=== PATIENT | female | born 1960 | race Caucasian/White ===

== ENCOUNTER 2017-07-04 19:35 | Inpatient (IN) | payer MEDICARE, OTHER ==
[~2017-07-04] VITALS: Ht 162.6 cm; Wt 60.1 kg
[2017-07-04 19:36] VITALS: BP 131/87; PULSE 99; RESP 16; TEMP 97.9; O2SAT 98
[2017-07-04] MEDS ORDERED: BUPR150XL PO (22:23)
[2017-07-04] MEDS ORDERED: ATOR10TA15 PO (22:23)
[2017-07-04] MEDS ORDERED: ARIP1TAB5 PO (22:24)
[2017-07-04] MEDS ORDERED: LAMO25 PO (22:24)
[2017-07-04] MEDS ORDERED: MELO7.5T4 PO (22:30)
--- NOTE | 2017-07-04 23:00 | PD ---
HPI . Neck pain Chief Complaint: Medical Clearance Time Seen by Provider: 22:50 Travel History International Travel<30 days: No Contact w/Intl Traveler<30days: No Traveled to known affect area: No History of Present Illness HPI This patient presents with admission orders from Dr. Bob dated today. The patient states that she left Dr. Bob's office and went home to take care of a few things before being admitted. She states that she was instructed to come to the emergency department to be admitted. She states that she is here for spinal decompression. She states that she has a history of COPD and is subsequently being admitted by her to her in to be evaluated treated by medicine and pulmonology. PFSH Past Medical History Bipolar Disorder: Yes Depression: Yes High Cholesterol: Yes COPD: Yes Tetanus Vaccination: Unknown Influenza Vaccination: No Menopausal: Yes : 1 Para: 1 Past Surgical History Section: Yes Hysterectomy: Yes Other Surgery: Yes (RIGHT LOWER LOBECTOMY) Social History Alcohol Use: Yes (SOCIAL) Tobacco Use: Yes Substance Use: No Allergies-Medications (Allergen,Severity, Reaction): Coded Allergies: morphine (Verified Adverse Reaction, Unknown, Headache, 07/04/17) Reported Meds & Prescriptions Reported Meds & Active Scripts Active Reported Meloxicam 7.5 Mg Tab 7.5 Mg PO DAILY Abilify (Aripiprazole) 10 Mg Tab 30 Mg PO HS Lamictal (Lamotrigine) 25 Mg Tab 100 Mg PO DAILY Wellbutrin Xl 24 HR (Bupropion HCl) 150 Mg Tab 100 Mg PO DAILY Atorvastatin (Atorvastatin Calcium) 10 Mg Tab 20 Mg PO HS Review of Systems Except as stated in HPI: all other systems reviewed are Neg HENT: Positive: Neck Pain Respiratory: Positive: Cough, No: Shortness of Breath Physical Exam Narrative GENERAL: Awake and alert. She looks pretty comfortable. SKIN: Warm and dry and intact. HEAD: Normocephalic/atraumatic. EYES: Extraocular movements are intact. CARDIOVASCULAR: Heart sounds are normal. RESPIRATORY: She has an occasional cough but good air movement and her lungs are clear. MUSCULOSKELETAL: Atraumatic. NEUROLOGICAL: Nonfocal. PSYCHIATRIC: Appropriate mood and affect. Data Data Last Documented VS Vital Signs Date Time Temp Pulse Resp B/P (MAP) Pulse Ox O2 Delivery O2 Flow Rate FiO2 07/04/17 19:36 97.9 99 16 131/87 (102) 98 Room Air Orders Orders Admit Order (Ed Use Only) (07/04/17 22:51) Vital Signs (Adult) Q4H (07/04/17 22:51) Diet Heart Healthy (07/05/17 Breakfast) Activity Oob With Assistance (07/04/17 22:51) Notify Dr: Other (07/04/17 22:51) MDM Medical Decision Making Medical Screen Exam Complete: Yes Emergency Medical Condition: Yes Differential Diagnosis Differential diagnosis of neck pain includes but is not limited to muscle spasm/ pain, arthritis, spinal stenosis, HNP, epidural abscess Narrative Course This patient presents with admission orders. She is to be admitted to one of the orthopedic surgeons with consults to and pulmonology. I have entered the ready to move orders and we will send the written admission orders from the orthopedist to the floor with the patient. Diagnosis Primary Impression: Cervical stenosis of spinal canal Admitting Information Admitting Physician Requests: Admit Condition: Stable Bisi Hendrickson MD Jul 04, 2017 23:00
[2017-07-05] VITALS (7 sets, daily range): BP systolic 88–105; BP diastolic 54–69; PULSE 82–93; RESP 16–18; TEMP 96.7–98.8; O2SAT 92–99
[2017-07-05] MEDS ORDERED: diphenhydrAMINE HCL 25 MG CAP PO PRN (00:15)
[2017-07-05] MEDS ORDERED: ACETAMINOPHEN 325 MG TAB PO PRN (00:15)
[2017-07-05] MEDS ORDERED: MORPHINE SULFATE 4 MG/ML INJ IV PRN (00:15)
[2017-07-05] MEDS ORDERED: ONDANSETRON HCL 4 MG/2 ML VIAL IV PUSH PRN (00:15)
[2017-07-05 02:22] LABS: AUTOMATED NEUTROPHIL # 2.8 TH/MM3 (1.8-7.7); BASOPHIL % 0.8 % (0.0-2.0); EOSINOPHIL # 0.1 TH/MM3 (0-0.4); EOSINOPHIL % 2.1 % (0.0-4.0); HEMATOCRIT 38.7 % (35.0-46.0); HEMO FLAGS DIFF FINAL; LYMPH % 41.3 % (9.0-44.0); LYMPHOCYTE # 2.6 TH/MM3 (1.0-4.8); MEAN CELL VOLUME 96.1 FL (80.0-100.0); MEAN CORPUSCULAR HGB CONC 33.3 % (32.0-36.0); MONO % 11.2 % (0.0-8.0); NEUT % 44.6 % (16.0-70.0); PLATELET COUNT 237 TH/MM3 (150-450); RED BLOOD COUNT 4.03 MIL/MM3 (4.00-5.30); RED CELL DISTRIBUTION WIDTH 13.6 % (11.6-17.2); WHITE BLOOD COUNT 6.3 TH/MM3 (4.0-11.0)
[2017-07-05 02:31] LABS: APTT (PATIENT) 24.9 SEC (24.3-30.1); INTERNATIONAL NORMALIZED RATIO 0.9 RATIO; PROTHROMBIN TIME - PATIENT 10.1 SEC (9.8-11.6)
[2017-07-05 02:39] LABS: BICARBONATE 28.1 MEQ/L (21.0-32.0); POTASSIUM 3.8 MEQ/L (3.5-5.1)
[2017-07-05] MEDS: ACETAMINOPHEN/HYDROcodone 325 MG/5 MG TAB PO PRN ×3 (04:58→19:04)
--- NOTE | 2017-07-05 07:29 | RADRPT ---
EXAM DATE/TIME: 07/05/2017 06:15 [facility] COMPARISON: No previous studies available for comparison. INDICATIONS : Evaluate for pneumonia, pneumothorax or communicable disease MEDICAL HISTORY : Chronic obstructive pulmonary disease. asthma, cervical stenosis SURGICAL HISTORY : right lower lobectomy ENCOUNTER: Initial ACUITY: 1 day PAIN SCORE: 0/10 LOCATION: Bilateral chest FINDINGS: Portable AP view of the chest demonstrate a normal-sized cardiac silhouette. There is slight blunting of the right costophrenic sulcus with linear opacities at the right lung base. No pneumothorax or co nsolidation is visualized. Bones and soft tissues demonstrate no acute finding. There is an old heale d right mid clavicle fracture. CONCLUSION: Slight blunting of the right costophrenic angle could represent pleural scar or trace pleural fluid. There is associated scar or atelectasis at the right base. Dionicio Méndez MD on July 05, 2017 at 7:26 Board Certified Radiologist. This report was verified electronically.
--- NOTE | 2017-07-05 09:40 | HHI.HP ---
HPI Service [facility] Primary Care Physician No Primary Care Physician Admission Diagnosis progressive myelopathy cervical stenosis Diagnoses: Chief Complaint: Difficulty with ambulation with progressive myelopathy Travel History International Travel<30 Days: No Contact w/Intl Traveler <30 Da: No Traveled to Known Affected Are: No History of Present Illness Patient is a 57yo female who presented to my office with low back pain and difficulty ambulating. She states her balance dysfunction has been worsening over the last several months and over the last 2 weeks has made it almost impossible to walk without a walker and not fall. She was floridly myelopathic in office with progression since first evaluation and therefore was admitted to the hospital for IV steroids, medical clearance, and surgery tomorrow. Review of Systems Constitutional: DENIES: Fever Endocrine: DENIES: Polydipsia Eyes: DENIES: Blurred vision Ears, nose, mouth, throat: DENIES: Running Nose Respiratory: DENIES: Cough Cardiovascular: DENIES: Chest pain Gastrointestinal: DENIES: Abdominal pain Genitourinary: DENIES: Urinary frequency Musculoskeletal: COMPLAINS OF: Joint pain, Muscle aches, Back pain, Neck pain Integumentary: DENIES: Rash Hematologic/lymphatic: DENIES: Bruising Immunologic/allergic: DENIES: Eczema Neurologic: COMPLAINS OF: Abnormal gait, Paresthesias, Poor Balance Psychiatric: DENIES: Anxiety Past Family Social History Past Medical History Bipolar, hyperlipidemia, COPD Past Surgical History s/p R lower lobectomy and 2 prior ACDFs Reported Medications atorvastatin, lamotrogine, abilify Allergies: Coded Allergies: morphine (Verified Adverse Reaction, Unknown, Headache, 07/04/17) Active Ordered Medications Current Medications Medications (Trade) Dose Ordered Sig/Megan Route Start Time Stop Time Status Last Admin ([place] 5-325 Mg) 1 tab Q6H PRN PO 07/05/17 00:15 07/05/17 04:58 (Morphine Inj) 2 mg Q4H PRN IV 07/05/17 00:15 (Tylenol) 650 mg Q6H PRN PO 07/05/17 00:15 (Zofran Inj) 4 mg Q8H PRN IV PUSH 07/05/17 00:15 (Benadryl) 25 mg Q8H PRN PO 07/05/17 00:15 (Abilify) 30 mg HS PO 07/05/17 21:00 UNV (Lipitor) 20 mg HS PO 07/05/17 21:00 UNV (Wellbutrin Xl 24 Hr) 100 mg DAILY PO 07/06/17 09:00 UNV (LaMICtal) 100 mg DAILY PO 07/05/17 09:30 UNV Reported Meds & Active Scripts Active Reported Meloxicam 7.5 Mg Tab 7.5 Mg PO DAILY Abilify (Aripiprazole) 10 Mg Tab 30 Mg PO HS Lamictal (Lamotrigine) 25 Mg Tab 100 Mg PO DAILY Wellbutrin Xl 24 HR (Bupropion HCl) 150 Mg Tab 100 Mg PO DAILY Atorvastatin (Atorvastatin Calcium) 10 Mg Tab 20 Mg PO HS Family History denies cardiac issues Social History +tobacco and EtOH Physical Exam Vital Signs Vital Signs Date Time Temp Pulse Resp B/P (MAP) Pulse Ox O2 Delivery O2 Flow Rate FiO2 07/05/17 08:20 97.2 93 18 102/63 (76) 98 07/05/17 04:51 96.7 82 17 105/61 (76) 94 07/05/17 00:30 97.3 82 16 103/69 (80) 96 07/04/17 23:34 07/04/17 19:36 97.9 99 16 131/87 (102) 98 Room Air Physical Exam Awake, alert, NAD Normocephalic Pupils equal Moist mucous membranes No JVD Normal affect Non-labored respirations Regular rate Soft, non-tender abdomen Neck with decreased ROM due to pain. Mild TTP about posterior paraspinals. 5/5 strength throughout BUE although reports paresthesias intermittently in upper extremities. +Hoffmans. Unable to perform rapid alternating movements. BLE: full active ROM and strength throughout. +Clonus. Sensation reported to be decreased throughout entire lower extremities. Laboratory Laboratory Tests Test 07/05/17 01:50 White Blood Count 6.3 Red Blood Count 4.03 Hemoglobin 12.9 Hematocrit 38.7 Mean Corpuscular Volume 96.1 Mean Corpuscular Hemoglobin 32.0 Mean Corpuscular Hemoglobin Concent 33.3 Red Cell Distribution Width 13.6 Platelet Count 237 Mean Platelet Volume 7.6 Neutrophils (%) (Auto) 44.6 Lymphocytes (%) (Auto) 41.3 Monocytes (%) (Auto) 11.2 Eosinophils (%) (Auto) 2.1 Basophils (%) (Auto) 0.8 Neutrophils # (Auto) 2.8 Lymphocytes # (Auto) 2.6 Monocytes # (Auto) 0.7 Eosinophils # (Auto) 0.1 Basophils # (Auto) 0.0 CBC Comment DIFF FINAL Differential Comment Prothrombin Time 10.1 Prothromb Time International Ratio 0.9 Activated Partial Thromboplast Time 24.9 Blood Urea Nitrogen 14 Creatinine 0.68 Random Glucose 91 Calcium Level 8.8 Sodium Level 139 Potassium Level 3.8 Chloride Level 107 Carbon Dioxide Level 28.1 Anion Gap 4 Estimat Glomerular Filtration Rate 90 Result Diagram: 07/05/1714907/05/17149 Imaging MRI C and T spine from outside facilities demonstrate severe cervical stenosis C7-T1 with myelomalacia and spondylolisthesis C7 on T1. Prior fusion C4-C6 well healed. C3-[address] without clear evidence of fusion. Right foraminal stenosis C6-C7 Caprini VTE Risk Assessment Caprini VTE Risk Assessment: No/Low Risk (score <= 1) (Planned surgery tomorrow and patient is able to ambulate as tolerated today) VTE Pharm Contraindication: Spinal surgery Caprini Risk Assessment Model Point Value = 1 Point Value = 2 Point Value = 3 Point Value = 5 Age 41-60 Minor surgery BMI > 25 kg/m2 Swollen legs Varicose veins or History of unexplained or recurrent spontaneous Oral contraceptives or hormone replacement Sepsis (< 1 month) Serious lung disease, including pneumonia (< 1 month) Abnormal pulmonary function Acute myocardial infarction Congestive heart failure (< 1 month) History of inflammatory bowel disease Medical patient at bed rest Age 61-74 Arthroscopic surgery Major open surgery (> 45 min) Laparoscopic surgery (> 45 min) Malignancy Confined to bed (> 72 hours) Immobilizing plaster cast Central venous access Age >= 75 History of VTE Family history of VTE Factor V Leiden Prothrombin [id number] Lupus anticoagulant Anticardiolipin antibodies Elevated serum homocysteine Heparin-induced thrombocytopenia Other congenital or acquired thrombophilia Stroke (< 1 month) Elective arthroplasty Hip, pelvis, or leg fracture Acute spinal cord injury (< 1 month) Prophylaxis Regimen Total Risk Factor Score Risk Level Prophylaxis Regimen 0-1 Low Early ambulation 2 Moderate Order ONE of the following: *Sequential Compression Device (SCD) *Heparin 5000 units SQ BID 3-4 Higher Order ONE of the following medications: *Heparin 5000 units SQ TID *Enoxaparin/Lovenox 40 mg SQ daily (WT < 150 kg, CrCl > 30 mL/min) *Enoxaparin/Lovenox 30 mg SQ daily (WT < 150 kg, CrCl > 10-29 mL/min) *Enoxaparin/Lovenox 30 mg SQ BID (WT < 150 kg, CrCl > 30 mL/min) AND/OR *Sequential Compression Device (SCD) 5 or more Highest Order ONE of the following medications: *Heparin 5000 units SQ TID (Preferred with Epidurals) *Enoxaparin/Lovenox 40 mg SQ daily (WT < 150 kg, CrCl > 30 mL/min) *Enoxaparin/Lovenox 30 mg SQ daily (WT < 150 kg, CrCl > 10-29 mL/min) *Enoxaparin/Lovenox 30 mg SQ BID (WT < 150 kg, CrCl > 30 mL/min) AND *Sequential Compression Device (SCD) Assessment & Plan Assessment and Plan 57yo F with cervical stenosis with progressive myelopathy, admitted for IV steroids prior to operative decompression tomorrow 1. IV steroids for next 24hrs to help with cord edema 2. Medicine and pulmonology consults for clearance and optimization for surgery 3. Fall precautions given significant balance dysfunction 4. NPO after midnight for surgery tomorrow. 5. Plan for C6-T1 decompression with posterior cervical instrumented fusion C3- T2 Alejandra Bob MD Jul 05, 2017 09:40
--- NOTE | 2017-07-05 10:09 | PD.CONS ---
[facility] Request[facility] By Dr. Bob Reason for Consult Preop clearance, medical management Primary Care Physician No Primary Care Physician Diagnoses: History of Present Illness Written by Tyrell Min, acting as scribe for Dr. Maddox on 07/05/17 at 10: 09. Patient is a 57-year-old female with primary medical history of COPD, bipolar disorder, cervical stenosis who came into the hospital as advised by Dr. Bob for spinal decompression. Patient states that she came in because she has been having neck pain, described as sharp pain, associated with with numbness and tingling from her arms all the way down to her legs, states burning sensation is also present. Patient reports unsteady gait, left hand and able to hold on things. Patient verified her previous medical and surgical history. Last surgery was 3 years ago for the C3 to C5 surgical intervention. When asked whether she has chest pain or shortness of breath with exertion, patient states that she has chest tightness not really pain chest pressure when she climbs stairs or when she does exert efforts ongoing for about 5 years now, she gets short of breath and she attributed this to her COPD. Reports dry cough for about a day not expectorating anything. Denies snoring. Currently she denies chest pain, palpitations, SOB/dyspnea .Denies pain and discomfort. Denies headaches, dizziness. Denies fevers, chills, n/v/d. Review of Systems Except as stated in HPI: all other systems reviewed are Neg Past Family Social History Allergies: Coded Allergies: morphine (Verified Adverse Reaction, Unknown, Headache, 07/04/17) Past Medical History COPD Bipolar disorder Depression Hyperlipidemia Spinal stenosis Past Surgical History Right lobectomy secondary to mass, benign, about 8 years ago Hysterectomy next and Spinal surgery x2 Reported Medications Reported Meds & Active Scripts Active Reported Abilify (Aripiprazole) 10 Mg Tab 30 Mg PO HS Lamictal (Lamotrigine) 25 Mg Tab 100 Mg PO DAILY Wellbutrin Xl 24 HR (Bupropion HCl) 150 Mg Tab 100 Mg PO DAILY Atorvastatin (Atorvastatin Calcium) 10 Mg Tab 20 Mg PO HS Active Ordered Medications Current Medications Medications (Trade) Dose Ordered Sig/Megan Route Start Time Stop Time Status Last Admin ([place] 5-325 Mg) 1 tab Q6H PRN PO 07/05/17 00:15 07/05/17 04:58 (Morphine Inj) 2 mg Q4H PRN IV 07/05/17 00:15 (Tylenol) 650 mg Q6H PRN PO 07/05/17 00:15 (Zofran Inj) 4 mg Q8H PRN IV PUSH 07/05/17 00:15 (Benadryl) 25 mg Q8H PRN PO 07/05/17 00:15 (Abilify) 30 mg HS PO 07/05/17 21:00 UNV (Lipitor) 20 mg HS PO 07/05/17 21:00 UNV (Wellbutrin Xl 24 Hr) 100 mg DAILY PO 07/06/17 09:00 UNV (LaMICtal) 100 mg DAILY PO 07/05/17 09:30 UNV (Decadron Inj) 4 mg Q8HR IV PUSH 07/05/17 10:00 UNV Family History Mother had a stroke now wheelchair bound. Social History Rare alcohol use 44 years smoking history half a pack per day, current smoker Marijuana use occasionally last use about a month ago Physical Exam Vital Signs Vital Signs Date Time Temp Pulse Resp B/P (MAP) Pulse Ox O2 Delivery O2 Flow Rate FiO2 07/05/17 08:20 97.2 93 18 102/63 (76) 98 07/05/17 04:51 96.7 82 17 105/61 (76) 94 07/05/17 00:30 97.3 82 16 103/69 (80) 96 07/04/17 23:34 07/04/17 19:36 97.9 99 16 131/87 (102) 98 Room Air Physical Exam GENERAL: This is a well-nourished, well-developed patient, in no apparent distress. SKIN: No rashes, ecchymoses or lesions. Warm and dry. HEAD: Atraumatic. Normocephalic. No temporal or scalp tenderness. EYES: Pupils equal round and reactive. Extraocular motions intact. No scleral icterus. No injection or drainage. ENT: Nose without bleeding. Throat without erythema. Uvula midline. Airway patent. NECK: Trachea midline. No JVD or lymphadenopathy. Supple, nontender, no meningeal signs. CARDIOVASCULAR: Regular rate and rhythm without murmurs, gallops, or rubs. RESPIRATORY: Clear to auscultation. Breath sounds equal bilaterally. No wheezes , rales, or rhonchi. GASTROINTESTINAL: Abdomen soft, non-tender, nondistended. No guarding. I'll sounds active 4. MUSCULOSKELETAL: Extremities without clubbing, cyanosis, or edema. NEUROLOGICAL: Awake and alert. Cranial nerves II through XII intact. Motor and sensory grossly within normal limits. Normal speech. Laboratory Laboratory Tests Test 07/05/17 01:50 White Blood Count 6.3 Red Blood Count 4.03 Hemoglobin 12.9 Hematocrit 38.7 Mean Corpuscular Volume 96.1 Mean Corpuscular Hemoglobin 32.0 Mean Corpuscular Hemoglobin Concent 33.3 Red Cell Distribution Width 13.6 Platelet Count 237 Mean Platelet Volume 7.6 Neutrophils (%) (Auto) 44.6 Lymphocytes (%) (Auto) 41.3 Monocytes (%) (Auto) 11.2 Eosinophils (%) (Auto) 2.1 Basophils (%) (Auto) 0.8 Neutrophils # (Auto) 2.8 Lymphocytes # (Auto) 2.6 Monocytes # (Auto) 0.7 Eosinophils # (Auto) 0.1 Basophils # (Auto) 0.0 CBC Comment DIFF FINAL Differential Comment Prothrombin Time 10.1 Prothromb Time International Ratio 0.9 Activated Partial Thromboplast Time 24.9 Blood Urea Nitrogen 14 Creatinine 0.68 Random Glucose 91 Calcium Level 8.8 Sodium Level 139 Potassium Level 3.8 Chloride Level 107 Carbon Dioxide Level 28.1 Anion Gap 4 Estimat Glomerular Filtration Rate 90 Result Diagram: 07/05/17 0150 07/05/17 0150 Imaging Last Impressions Chest X-Ray 07/05/17 0000 Signed Impressions: Service Date/Time: June 06:15 - CONCLUSION: Slight blunting of the right costophrenic angle could represent pleural scar or trace pleural fluid. There is associated scar or atelectasis at the right base. Dionicio Méndez MD Assessment and Plan Problem List: (1) Cervical stenosis of spinal canal ICD Code: M48.02 - Spinal stenosis, cervical region Status: Acute Assessment and Plan Patient is a 57-year-old female with primary medical history of COPD, bipolar disorder, cervical stenosis who came into the hospital as advised by Dr. Bob for spinal decompression. Spinal decompression - Plan for surgical intervention tomorrow by Dr. Bob - Decadron IV 4 mg every 8 hours per surgery - Pain management by morphine IV, [place] - Patient may need to cardiology for clearance since she was complaining of tightness and shortness of breath with exertion which is not usual for COPD patients and signifying angina. States that she had prior stress tests unable to know the results nor the date of the last stress test done. We will order EKG, myocardial perfusion study. COPD, not in exacerbation - Complains of occasional cough, dry, unable to expectorate - DuoNeb's Bipolar disorder, depression - And tinea with home medications Abilify, Lamictal, Wellbutrin HLD - Continue with atorvastatin DVT prop SCDs Code Status Full code Discussed Condition With Patient, nursing This note was transcribed by scriberic [Tyrell Min]. I, Dr. Jesse Maddox personally performed the history, physical exam, and medical decision making; and confirmed the accuracy of the information in the transcribed note. Authenticated by Dr. Jesse Maddox on 07/05/17 at 18:47. Tyrell Pennington Jul 05, 2017 10:09 Jesse Maddox MD Jul 05, 2017 10:10
--- NOTE | 2017-07-05 12:13 | EKG ---
Date Performed: 07/05/2017 Time Performed: 01:01:16 PTAGE: 57 years EKG: Sinus rhythm Normal ECG NO PREVIOUS TRACING DOCTOR: Franci Sepulveda Interpretating Date/Time 07/05/2017 12:11:40
[2017-07-05] MEDS: DEXAMETHASONE SOD PHOS 4 MG/ML VIAL IV PUSH SCH ×3 (12:23→23:05)
[2017-07-05] MEDS: lamoTRIgine 100 MG TAB PO SCH (12:24)
--- NOTE | 2017-07-05 12:32 | MB ---
cc: DANIEL MAK DATE OF CONSULTATION 07/05/2017 INDICATION Chest pain. HISTORY OF PRESENT ILLNESS This is a 57-year-old female. She presented initially with low back pain, difficulty with ambulation and imbalance over the course of the past several months. She was admitted from an outpatient office due to florid myelopathy for IV steroids. They are anticipating possible surgery upcoming and needed surgical clearance. She generates more than 4 METS but does describe some chest tightness with heavy exertion. Denies any prior history of known heart disease, stress test or heart catheterization. PAST MEDICAL HISTORY 1. Bipolar. 2. Hyperlipidemia. 3. COPD. MEDICATIONS 1. Atorvastatin. 2. Lamotrigine. 3. Abilify. ALLERGIES MORPHINE. REVIEW OF SYSTEMS A 12-point reviews was performed, negative unless otherwise noted in the History of Present Illness. FAMILY HISTORY Denies any family history of early cardiac disease or sudden cardiac . SOCIAL HISTORY Reports tobacco use but denies any significant alcohol use. PHYSICAL EXAMINATION VITAL SIGNS: Temperature 97, pulse 93, blood pressure 102/63 mmHg. GENERAL: Alert and oriented x3, in no acute distress. HEENT: Exam shows pupils reactive to light and accommodation, extraocular movements intact. NECK: No elevation in jugular venous distension. No thyromegaly or lymphadenopathy. No carotid bruits. LUNGS: Clear to auscultation bilaterally. CARDIOVASCULAR EXAM: Regular rate and rhythm without murmurs, rubs or gallops. ABDOMINAL EXAM: Nontender, nondistended. Good bowel sounds. No hepatosplenomegaly. EXTREMITIES: No clubbing, cyanosis or edema. Good peripheral pulses. NEUROLOGIC: Cranial nerves intact. Motor and sensory grossly intact. LABORATORY DATA His labs show sodium of 139, potassium 3.8, BUN is 14, creatinine 0.8. INR is 0.9. Hemoglobin is 12.9, platelet count 237. ASSESSMENT 1. Chest pain. 2. Back pain. PLAN Intermediate risk surgery. The patient generates 4 METS but does experience chest pain. Now given active symptoms, she is not going to tolerate any sort of treadmill study. We will need to proceed with a Lexiscan for cardiac clearance. If that is otherwise unremarkable, then she will be cleared from a cardiac perspective for surgery. MD SANDIE Rooney/BEVERLY /12:01 PM /12:06 PM TAMMY
--- NOTE | 2017-07-05 17:21 | MB ---
cc: SHALONDA LIZ DATE OF CONSULTATION 07/05/17 REASON FOR CONSULTATION Patient with COPD admitted with spinal stenosis and lower extremity weakness planned for surgery in the a.m., underway for pulmonary clearance. HISTORY OF PRESENT ILLNESS the patient is 57 years of age, presents to the hospital with low back pain, difficulty ambulating over several months. The patient apparently was transferred to the hospital with severe myelopathy requiring IV steroid therapy and possible surgery. She does have plans for surgery in the a.m. underway. The patient does have shortness of breath with exertion. She is a smoker and currently does smoke. Denies history of fever or chills, does have an occasional cough small amount of whitish sputum. Denies history of hemoptysis, TB or industrial exposure. MEDICATIONS At home 1. Lamotrogine. 2. Atorvastatin. 3. Abilify 4. Inhaler to use for shortness of breath as needed PAST MEDICAL HISTORY 1. Bipolar disorder 2. COPD 3. Hyperlipidemia 4. Spinal stenosis as mentioned above with lower extremity weakness. FAMILY HISTORY Noncontributory. ALLERGIES MORPHINE REVIEW OF SYSTEMS A 12-point review of systems as per HPI and past history otherwise negative. PHYSICAL EXAMINATION GENERAL: The patient is alert. VITAL SIGNS: Temperature 98, pulse 80, respirations 18, blood pressure 100/60, oxygen saturation 99% on room air. HEENT: Exam unremarkable. Eyes without icterus. NECK: Without adenopathy or thyroid enlargement. CHEST: No dullness to percussion, clear to auscultation. CARDIAC: PMI not appreciated. S1-S2 audible. No murmur or rub. ABDOMEN: Lax, audible bowel sounds. EXTREMITIES: No clubbing, cyanosis or edema. Lower extremity weakness as mentioned above. SKIN: Normal. No lymphadenopathy LABORATORY DATA White count 6.3, hemoglobin 12.9, sodium 139, potassium 3.8, BUN 14, creatinine 0.6. IMAGING STUDIES Chest x-ray done today with slight blunting of the right costophrenic angle, pleural scar or trace effusion. No mass lesion or infiltrate identified. IMPRESSION 1. Smoking history, question COPD 2. Spinal stenosis, lower extremity weakness. 3. Tobacco abuse. PLAN The patient encouraged to stop smoking. The patient is in no acute distress at present. We will check baseline spirometric exam as well as arterial blood gas. Clinically, patient seems stable. Does not seem that she will have any problem with surgical intervention at this time, especially this is an emergency with lower extremity weakness and would require intervention to relieve nerve compression. However, timing of the surgery obviously will be left to orthopedic or neurosurgery. It would be appropriate to initiate bronchodilator therapy via nebulizations before and after surgery. Obviously, will need pulmonary toilet and attention postoperatively to mobilize secretion, especially with her muscle weakness. I do thank you for asking me to partake in Mrs. Gomes's care. Shalonda Liz MD WWW/ /4:50 PM /5:03 PM
[2017-07-05 19:43] LABS: BLOOD GAS BASE EXCESS -0.7 mmol/L (-2-2); BLOOD GAS HCO3 24 mmol/L (22-26); BLOOD GAS O2 HGB SATURATION 92 % (90-100); BLOOD GAS PCO2 43 mmHg (38-42); BLOOD GAS PO2 74 mmHg (61-120); BLOOD GAS TOTAL HGB 13.2 G/DL (12.0-16.0); CRITICAL VALUE NO; DRAW SITE RT RADIAL; NUMBER OF ARTERIAL PUNCTURES 2; OXYGEN DEVICE RA; STAT NO; TEMP CORR TO 98.6; ULNAR PULSE PRESENT
[2017-07-05] MEDS: ARIPiprazole 10 MG TAB PO SCH (23:00)
[2017-07-05] MEDS: ATORVASTATIN 20 MG TAB PO SCH (23:04)
[2017-07-06 00:55] VITALS: BP 102/58; PULSE 90; RESP 18; TEMP 97.6; O2SAT 92
[2017-07-06] MEDS: ACETAMINOPHEN/HYDROcodone 325 MG/5 MG TAB PO PRN ×3 (01:10→15:02)
[2017-07-06 04:10] VITALS: BP 102/62; PULSE 90; RESP 17; TEMP 97.1; O2SAT 92
[2017-07-06] MEDS: DEXAMETHASONE SOD PHOS 4 MG/ML VIAL IV PUSH SCH ×3 (06:11→22:00)
[2017-07-06] MEDS ORDERED: THROMBIN (TOPICAL) 5,000 UNIT VIAL ONE (07:32)
[2017-07-06] MEDS ORDERED: GENTAMICIN SULFATE 80 MG/2 ML VIAL ONE (07:32)
[2017-07-06] MEDS ORDERED: GELFOAM SIZE 100 ONE (07:32)
[2017-07-06] MEDS ORDERED: BACITRACIN TOP OINT 15 GM TUBE ONE (07:32)
[2017-07-06] MEDS ORDERED: BUPIVACAINE/EPINEPHRINE 0.25% 50 ML VIAL ONE (07:32)
[2017-07-06 07:47] VITALS: BP 116/66; PULSE 86; RESP 19; TEMP 97.4; O2SAT 93
--- NOTE | 2017-07-06 08:10 | PD.CARD.PN ---
Subjective Subjective Remarks no CV complaints (Jeremías Ennis) Objective Medications Current Medications Medications (Trade) Dose Ordered Sig/Megan Route Start Time Stop Time Status Last Admin ([place] 5-325 Mg) 1 tab Q6H PRN PO 07/05/17 00:15 07/06/17 01:10 (Morphine Inj) 2 mg Q4H PRN IV 07/05/17 00:15 (Tylenol) 650 mg Q6H PRN PO 07/05/17 00:15 (Zofran Inj) 4 mg Q8H PRN IV PUSH 07/05/17 00:15 (Benadryl) 25 mg Q8H PRN PO 07/05/17 00:15 (Abilify) 30 mg HS PO 07/05/17 21:00 07/05/17 23:00 (Lipitor) 20 mg HS PO 07/05/17 21:00 07/05/17 23:04 (LaMICtal) 100 mg DAILY PO 07/05/17 09:30 07/05/17 12:24 (Decadron Inj) 4 mg Q8HR IV PUSH 07/05/17 10:00 07/06/17 06:11 (Wellbutrin Sr) 150 mg DAILY PO 07/06/17 09:00 Vital Signs / I&O Vital Signs Date Time Temp Pulse Resp B/P (MAP) Pulse Ox O2 Delivery O2 Flow Rate FiO2 07/06/17 07:47 97.4 86 19 116/66 (83) 93 07/06/17 04:10 97.1 90 17 102/62 (75) 92 07/06/17 00:55 97.6 90 18 102/58 (73) 92 07/05/17 20:50 98.2 93 18 94/56 (69) 92 07/05/17 20:47 92 07/05/17 16:00 98.8 85 18 88/54 (65) 92 07/05/17 12:13 97.9 89 18 91/56 (68) 99 07/05/17 08:20 97.2 93 18 102/63 (76) 98 I/O 07/05/17 07/05/17 07/05/17 07/06/17 07/06/17 07/06/17 07:00 15:00 23:00 07:00 15:00 23:00 Intake Total 0 ml 480 ml 240 ml Balance 0 ml 480 ml 240 ml Intake Oral 0 ml 480 ml 240 ml # Voids 2 2 2 # Bowel Movements 0 0 0 Physical Exam GENERAL: Well-nourished, well-developed patient in no apparent distress. NECK: No JVD. No carotid bruit. CARDIOVASCULAR: Regular rate and rhythm. S1/S2 no murmur, rub, or gallop. RESPIRATORY: No accessory muscle use. Clear to auscultation. Breath sounds equal bilaterally. GASTROINTESTINAL: Abdomen soft, non-tender, nondistended. MUSCULOSKELETAL: Extremities without clubbing, cyanosis, or edema. Laboratory Laboratory Tests Test 07/05/17 19:36 Blood Gas Puncture Site RT RADIAL Blood Gas Patient Temperature 98.6 Blood Gas HCO3 24 mmol/L Blood Gas Base Excess -0.7 mmol/L Blood Gas Oxygen Saturation 92 % Arterial Blood pH 7.37 Arterial Blood Partial Pressure CO2 43 mmHg Arterial Blood Partial Pressure O2 74 mmHg Arterial Blood Oxygen Content 17.0 Vol % Arterial Blood Carboxyhemoglobin 2.0 % Arterial Blood Methemoglobin 1.0 % Blood Gas Hemoglobin 13.2 G/DL Oxygen Delivery Device RA (Jeremías Ennis) Assessment and Plan Problem List: (1) Chest pain ICD Codes: R07.9 - Chest pain, unspecified Assessment and Plan Lexiscan SPECT this morning further recommendations will depend on that outcome (Jeremías Ennis) Assessment and Plan clear from cardio perspective for surgery will sign off call with further questions (Anshul Blue MD) Jeremías Ennis Jul 06, 2017 08:10 Anshul Blue MD Jul 06, 2017 14:09
[2017-07-06] MEDS ORDERED: buPROPion HCL 150 MG EXTENDED RELEASE TAB PO SCH (09:00)
--- NOTE | 2017-07-06 09:31 | HHI.PR ---
Subjective Remarks alert no sob at rest Objective Vital Signs Date Time Temp Pulse Resp B/P (MAP) Pulse Ox O2 Delivery O2 Flow Rate FiO2 07/06/17 07:47 97.4 86 19 116/66 (83) 93 07/06/17 04:10 97.1 90 17 102/62 (75) 92 07/06/17 00:55 97.6 90 18 102/58 (73) 92 07/05/17 20:50 98.2 93 18 94/56 (69) 92 07/05/17 20:47 92 07/05/17 16:00 98.8 85 18 88/54 (65) 92 07/05/17 12:13 97.9 89 18 91/56 (68) 99 I/O 07/05/17 07/05/17 07/05/17 07/06/17 07/06/17 07/06/17 07:00 15:00 23:00 07:00 15:00 23:00 Intake Total 0 ml 480 ml 240 ml Balance 0 ml 480 ml 240 ml Intake Oral 0 ml 480 ml 240 ml # Voids 2 2 2 # Bowel Movements 0 0 0 Result Diagram: 07/05/17 01507/05/17149 Objective Remarks GENERAL: SKIN: Warm and dry. HEAD: Atraumatic. Normocephalic. EYES: Pupils equal and round. No scleral icterus. No injection or drainage. ENT: No nasal bleeding or discharge. Mucous membranes pink and moist. NECK: Trachea midline. No JVD. CARDIOVASCULAR: Regular rate and rhythm. RESPIRATORY: No accessory muscle use. Clear to auscultation. Breath sounds equal bilaterally. GASTROINTESTINAL: Abdomen soft, non-tender, nondistended. Hepatic and splenic margins not palpable. MUSCULOSKELETAL: Extremities without clubbing, cyanosis, or edema. No obvious deformities. NEUROLOGICAL: Awake and alert. No obvious cranial nerve deficits. Motor grossly within normal limits. Five out of 5 muscle strength in the arms and legs. Normal speech. PSYCHIATRIC: Appropriate mood and affect; insight and judgment normal. Assessment and Plan Assessment and Plan copd spinal stenosis plan check pft bronchodilator therapy Shalonda Liz MD Jul 06, 2017 09:31
[2017-07-06] MEDS: lamoTRIgine 100 MG TAB PO SCH (09:32)
[2017-07-06] MEDS: buPROPion HCL 150 MG SUSTAINED RELEASE TAB PO SCH (09:32)
--- NOTE | 2017-07-06 10:14 | PD.ORT.PN ---
Subjective Subjective Remarks Patient doing well this morning. No new complaints. Pain controlled. Awaiting stress test this morning for cardiac clearance. Objective Vitals Vital Signs Date Time Temp Pulse Resp B/P (MAP) Pulse Ox O2 Delivery O2 Flow Rate FiO2 07/06/17 07:47 97.4 86 19 116/66 (83) 93 07/06/17 04:10 97.1 90 17 102/62 (75) 92 07/06/17 00:55 97.6 90 18 102/58 (73) 92 07/05/17 20:50 98.2 93 18 94/56 (69) 92 07/05/17 20:47 92 07/05/17 16:00 98.8 85 18 88/54 (65) 92 07/05/17 12:13 97.9 89 18 91/56 (68) 99 I/O 07/05/17 07/05/17 07/05/17 07/06/17 07/06/17 07/06/17 07:00 15:00 23:00 07:00 15:00 23:00 Intake Total 0 ml 480 ml 240 ml Balance 0 ml 480 ml 240 ml Intake Oral 0 ml 480 ml 240 ml # Voids 2 2 2 # Bowel Movements 0 0 0 Result Diagram: 07/05/17 01507/05/17 015 Objective Remarks Awake, alert, NAD BUE and BLE: without tenderness and NVI distally. Hyperreflexic throughout. Assessment & Plan Assessment and Plan 57yo F with cervical stenosis with progressive myelopathy, admitted for IV steroids prior to operative decompression planned for today 1. IV steroids for next 24hrs to help with cord edema. Will finish this morning 2. Medicine and pulmonology consults for clearance and optimization for surgery. Awaiting stress test for cardiac clearance. 3. Fall precautions given significant balance dysfunction 4. NPO for surgery. If patient clears today, will attempt to do later tonight pending OR availability 5. Plan for C6-T1 decompression with posterior cervical instrumented fusion C3- T2 Alejandra Bob MD Jul 06, 2017 10:14
[2017-07-06] MEDS ORDERED: REGADENOSON INJ 0.4 MG/5 ML SYR ONE (10:58)
--- NOTE | 2017-07-06 11:37 | RADRPT ---
EXAM DATE/TIME: 07/06/2017 09:52 [facility] COMPARISON: No previous studies available for comparison. INDICATIONS : Risk stratification for surgery. DOSE: 25.4 mCi Tc99m Myoview at stress. 8.6 mCi Tc99m Myoview at rest. 0.4 mg Lexiscan STRESS SYMPTOMS: Shortness of breath, chest pressure. EJECTION FRACTION: 68% MEDICAL HISTORY : Chronic obstructive pulmonary disease. SURGICAL HISTORY : Hysterectomy. Spinal surgery and right lower lobectomy. ENCOUNTER: Initial ACUITY: 1 day PAIN SCALE: 0/10 LOCATION: chest TECHNIQUE: The patient underwent pharmacologic stress with infusion of prescribed dose. Continuous ECG tracing was monitored during stress. Gated SPECT imaging was performed after stress and conventional SPECT i maging was performed at rest. The examination was performed on a SPECT/CT scanner, both attenuation and non-corrected datasets were reviewed. FINDINGS: DISTRIBUTION: The maximum perfused segment at stress is in the inferior wall. PERFUSION STUDY: The pattern of perfusion at stress is within normal limits. GATED STUDY: There is intact wall motion and thickening without hypokinetic or dyskinetic segments. CONCLUSION: No reversible defects observed to suggest acute ischemia. RISK CATEGORY: Low Asim Spangler Jr., MD on July 06, 2017 at 11:33 Board Certified Radiologist. This report was verified electronically.
--- NOTE | 2017-07-06 13:55 | HHI.PR ---
Subjective Remarks Patient seen today around noon. Says she is feeling all right. Denies any chest pain or shortness of breath. Objective Vital Signs Date Time Temp Pulse Resp B/P (MAP) Pulse Ox O2 Delivery O2 Flow Rate FiO2 07/06/17 07:47 97.4 86 19 116/66 (83) 93 07/06/17 04:10 97.1 90 17 102/62 (75) 92 07/06/17 00:55 97.6 90 18 102/58 (73) 92 07/05/17 20:50 98.2 93 18 94/56 (69) 92 07/05/17 20:47 92 07/05/17 16:00 98.8 85 18 88/54 (65) 92 I/O 07/05/17 07/05/17 07/05/17 07/06/17 07/06/17 07/06/17 07:00 15:00 23:00 07:00 15:00 23:00 Intake Total 0 ml 480 ml 240 ml Balance 0 ml 480 ml 240 ml Intake Oral 0 ml 480 ml 240 ml # Voids 2 2 2 # Bowel Movements 0 0 0 Result Diagram: 07/05/17 01507/05/17149 Objective Remarks GENERAL: Patient lying in bed. Appears comfortable. SKIN: Warm and dry. HEAD: Normocephalic. EYES: No scleral icterus. No injection or drainage. NECK: Supple, trachea midline. No JVD. CARDIOVASCULAR: Regular rate and rhythm without murmurs, gallops, or rubs. RESPIRATORY: Breath sounds equal bilaterally. No accessory muscle use. GASTROINTESTINAL: Abdomen soft, non-tender, nondistended. MUSCULOSKELETAL: No cyanosis, or edema. BACK: Nontender without obvious deformity. No CVA tenderness. A/P Assessment and Plan ====07/06/17 -Reviewed myocardial perfusion scan which is low risk. Appreciate cardiology assistance. Patient's cleared for surgery. Add maintenance fluids due to nothing by mouth status. Discussed with nursing. Patient is a 57-year-old female with primary medical history of COPD, bipolar disorder, cervical stenosis who came into the hospital as advised by Dr. Bob for spinal decompression. //Spinal decompression - Plan for surgical intervention tomorrow by Dr. Bob - Decadron IV 4 mg every 8 hours per surgery - Pain management by morphine IV, [place] - Patient may need to cardiology for clearance since she was complaining of tightness and shortness of breath with exertion which is not usual for COPD patients and signifying angina. States that she had prior stress tests unable to know the results nor the date of the last stress test done. We will order EKG, myocardial perfusion study. = 07/06. Myocardial perfusion scan low risk. Appreciate cardiology assistance. Patient is cleared for surgery. //COPD, not in exacerbation - Complains of occasional cough, dry, unable to expectorate - DuoNeb's as per pulmonology. Appreciate assistance. Rate ABG reviewed and acceptable. //Bipolar disorder, depression -Continue with home medications Abilify, Lamictal, Wellbutrin //HLD - Continue with atorvastatin //DVT prop SCDs Discharge Planning Pending neurosurgery Jesse Maddox MD Jul 06, 2017 13:55
[2017-07-06 14:33] VITALS: BP 102/62; PULSE 91; RESP 19; TEMP 97.3; O2SAT 98
[2017-07-06] MEDS: NS + KCL 20 MEQ INJ 1,000 ML IV SCH ×2 (14:53→23:59)
[2017-07-06] MEDS ORDERED: ceFAZolin 2 GM PREMIX 50 ML ONE (17:42)
[2017-07-06] MEDS ORDERED: VANCOMYCIN HCL 1000 MG VIAL ONE (17:42)
[2017-07-06] MEDS ORDERED: PROPOFOL 500 MG/50 ML INJ 0 ML ONE (19:02)
[2017-07-06] MEDS ORDERED: ACETAMINOPHEN 1000 MG/100 ML 100 ML IV ONE (19:02)
[2017-07-06] MEDS: ATORVASTATIN 20 MG TAB PO SCH (21:00)
[2017-07-06] MEDS: ARIPiprazole 10 MG TAB PO SCH (21:00)
[2017-07-06] MEDS ORDERED: DO NOT ADM ANY ANTICOAGULANT DRUGS PRN (22:30)
--- NOTE | 2017-07-06 22:40 | RADRPT ---
EXAM DATE/TIME: 07/06/2017 20:36 [facility] COMPARISON: No previous studies available for comparison. INDICATIONS : C6-T1 Laminectomy / C3-T2 Fusion MEDICAL HISTORY : cervical stenosis SURGICAL HISTORY : anterior cervical fusion ENCOUNTER: Initial ACUITY: 1 day PAIN SCORE: Non-responsive. LOCATION: cervical/thoracic spine FINDINGS: 4 images have been submitted. There is an anterior cervical fusion plate at the C3-C4 level. There ar e posterior stabilization rods with posterior element screws seen at the C3-T2 levels. There appear t o be stabilization devices at the C4-C5 and C5 at C6 disc levels. CONCLUSION: Good placement of the surgical hardware. Dionicio Cheng MD on July 06, 2017 at 22:37 Board Certified Radiologist. This report was verified electronically.
--- NOTE | 2017-07-06 22:40 | HHI.PR ---
cc: Alejandra Bob MD Immediate Post Op Note Procedure Date: Jul 06, 2017 Pre Op Diagnosis: Progressive cervical myeloradiculopathy Post Op Diagnosis: as above Surgeon: Alejandra Bob Advertising Project Manager(s): Esdras Romeo Procedure: 1. C6, T1 dome laminectomies, C7 laminectomy 2. C3-T2 posterior cervical instrumented fusion 3. Allograft Complications: none Estimated blood loss: 200mL Anesthesia: General Drains: Hemovac IVF Patient to: PACU Patient Condition: Good Implant/Devices: SEE IMPLANT LOG (if applicable) Date/Time of Procedure: SEE SURGICAL CARE RECORD Alejandra Bob MD Jul 06, 2017 22:40
[2017-07-06] MEDS ORDERED: Post-op Orders (for Pharmacy) MISC XX ONE (22:45)
[2017-07-06] MEDS ORDERED: NALOXONE HCL 0.4 MG/ML AMP IV PUSH PRN (22:45)
[2017-07-06] MEDS ORDERED: SODIUM CHLORIDE 0.9% FLUSH 10 ML FLUSH IV FLUSH PRN (22:45)
[2017-07-06] MEDS ORDERED: HYDROmorphone HCL PCA 6 MG/30 ML IV SCH (22:45)
[2017-07-06] MEDS ORDERED: SOD PHOSPHATE/SOD BIPHOSPHATE (ADULT) ENEMA 133ML PR PRN (22:45)
[2017-07-06] MEDS ORDERED: BISACODYL 10 MG SUPP RECTAL PRN (22:45)
[2017-07-07] VITALS (7 sets, daily range): BP systolic 94–147; BP diastolic 59–96; PULSE 74–99; RESP 16–18; TEMP 95.8–97.9; O2SAT 92–97
--- NOTE | 2017-07-07 | RADRPT ---
EXAM DATE/TIME: 07/06/2017 23:14 [facility] COMPARISON: [facility] ([facility]), July 06, 2017, 20:36. INDICATIONS : Post-op cervical fusion. MEDICAL HISTORY : Cervical stenosis SURGICAL HISTORY : Fusion, cervical. ENCOUNTER: Subsequent ACUITY: 1 day PAIN SCORE: Non-responsive. LOCATION: Cervical spine FINDINGS: There is an anterior cervical fusion plate at the C3-C4 level. There are stabilization devices at the C4-C5 and C5-C6 disc levels. There are stabilization rods and screws at the posterior elements of C3 -T2. The patient is status post laminectomy at C3-C7. The surgical hardware appears well placed. Ther e is an old right clavicle fracture. CONCLUSION: Good placement of cervical hardware. Dionicio Cheng MD on July 06, 2017 at 23:57 Board Certified Radiologist. This report was verified electronically.
[2017-07-07] MEDS ORDERED: PCA - TOTAL MG DILAUDID DELIVERED PER SHIFT OTHER SCH (06:00)
[2017-07-07] MEDS: DEXAMETHASONE SOD PHOS 4 MG/ML VIAL IV PUSH SCH (06:29)
[2017-07-07 07:23] LABS: HEMATOCRIT 34.6 % (35.0-46.0); REVIEW FLAG FINAL
[2017-07-07] MEDS: buPROPion HCL 150 MG SUSTAINED RELEASE TAB PO SCH (08:56)
[2017-07-07] MEDS: lamoTRIgine 100 MG TAB PO SCH (08:56)
[2017-07-07] MEDS: DOCUSATE SODIUM 100 MG CAP PO SCH ×2 (08:56→20:27)
[2017-07-07] MEDS: SODIUM CHLORIDE 0.9% FLUSH 10 ML FLUSH IV FLUSH SCH ×2 (08:57→20:29)
--- NOTE | 2017-07-07 09:06 | PD.ORT.PN ---
Subjective Subjective Remarks Reports she does have muscular pain in her posterior neck, o/w doing well. Reports some persistent numbness in bilateral feet, although she states her hands feel better. Objective Vitals Vital Signs Date Time Temp Pulse Resp B/P (MAP) Pulse Ox O2 Delivery O2 Flow Rate FiO2 07/07/17 08:00 97.0 90 18 95/68 (77) 92 07/07/17 06:00 18 07/07/17 04:29 97.5 92 17 94/59 (71) 97 07/07/17 00:58 96.9 99 17 139/88 (105) 95 07/07/17 00:24 16 07/07/17 00:00 86 14 117/72 (87) 97 Room Air 07/06/17 23:54 14 07/06/17 23:45 100 14 139/86 (103) 97 Room Air 07/06/17 23:30 85 13 124/75 (91) 100 Nasal Cannula 4 106/66 (79) 07/06/17 23:15 95 17 130/70 (90) 100 Nasal Cannula 4 133/76 (95) 07/06/17 23:00 100 17 127/74 (91) 100 Nasal Cannula 4 116/75 (89) 07/06/17 22:45 104 17 134/83 (100) 100 Nasal Cannula 4 07/06/17 22:39 97.6 109 17 130/82 (98) 100 Nasal Cannula 4 07/06/17 14:33 97.3 91 19 102/62 (75) 98 I/O 07/06/17 07/06/17 07/06/17 07/07/17 07/07/17 07/07/17 07:00 15:00 23:00 07:00 15:00 23:00 Intake Total 240 ml 2206 ml 938 ml Output Total 350 ml 1345 ml Balance 240 ml 1856 ml -407 ml Intake Oral 240 ml 0 ml 290 ml IV Total 206 ml 648 ml Other 2000 ml Output Urine Total 150 ml 1225 ml Drainage Total 120 ml Estimated Blood Loss 200 ml # Voids 3 0 # Bowel Movements 0 0 0 Result Diagram: 07/07/17 0709 07/05/17 0150 Objective Remarks Awake, alert, NAD BUE: 5/5 strength deltoid, biceps, triceps, wrist flex/ext, and finger flex/ ext. Sensation intact. Negative Hoffmans. Rad pulse palpable BLE: 5/5 strength throughout. Sensation mildly decreased similar to prior to surgery. 1-2 beats of clonus remain. DP palpable. Assessment & Plan Assessment and Plan 57yo F with cervical stenosis with progressive myelopathy, POD#1 s/p C6-T1 decompression with C3-T2 posterior instrumented fusion, doing well 1. Pain control: will switch from RETARDER OPERATOR to oral and IV medications this morning 2. Law to be removed this morning 3. HV to remain in place today. Plan for removal tomorrow with dressing change 4. PT for mobilization 5. C-collar at all times 6. No chemical anticoagulation due to recent spine surgery, mechanical with SCDs and TEDs and mobilization. 7. Discussed with patient, likely plan for discharge home Sunday pending clinical course Alejandra Bob MD Jul 07, 2017 09:05
[2017-07-07] MEDS: NS + KCL 20 MEQ INJ 1,000 ML IV SCH (10:45)
[2017-07-07] MEDS: ACETAMINOPHEN/HYDROcodone 325 MG/5 MG TAB PO PRN (12:50)
[2017-07-07] MEDS: HYDROmorphone HCL PF 1 MG/ML VIAL IV PUSH PRN ×2 (16:24→20:29)
--- NOTE | 2017-07-07 17:43 | HHI.PR ---
Subjective Remarks Patient seen today around noon. Says she is feeling all right. Reports pain is controlled. Denies any chest pain or shortness of breath. Objective Vital Signs Date Time Temp Pulse Resp B/P (MAP) Pulse Ox O2 Delivery O2 Flow Rate FiO2 07/07/17 16:00 95.8 90 16 107/80 (89) 95 07/07/17 12:00 97.9 74 16 95/64 (74) 95 07/07/17 08:00 97.0 90 18 95/68 (77) 92 07/07/17 06:00 18 07/07/17 04:29 97.5 92 17 94/59 (71) 97 07/07/17 00:58 96.9 99 17 139/88 (105) 95 07/07/17 00:24 16 07/07/17 00:00 86 14 117/72 (87) 97 Room Air 07/06/17 23:54 14 07/06/17 23:45 100 14 139/86 (103) 97 Room Air 07/06/17 23:30 85 13 124/75 (91) 100 Nasal Cannula 4 106/66 (79) 07/06/17 23:15 95 17 130/70 (90) 100 Nasal Cannula 4 133/76 (95) 07/06/17 23:00 100 17 127/74 (91) 100 Nasal Cannula 4 116/75 (89) 07/06/17 22:45 104 17 134/83 (100) 100 Nasal Cannula 4 07/06/17 22:39 97.6 109 17 130/82 (98) 100 Nasal Cannula 4 I/O 07/06/17 07/06/17 07/06/17 07/07/17 07/07/17 07/07/17 07:00 15:00 23:00 07:00 15:00 23:00 Intake Total 240 ml 2206 ml 938 ml 700 ml 989 ml Output Total 350 ml 1345 ml Balance 240 ml 1856 ml -407 ml 700 ml 989 ml Intake Oral 240 ml 0 ml 290 ml 600 ml IV Total 206 ml 648 ml 100 ml 989 ml Other 2000 ml Output Urine Total 150 ml 1225 ml Drainage Total 120 ml Estimated Blood Loss 200 ml # Voids 3 0 2 # Bowel Movements 0 0 0 0 Result Diagram: 07/07/17 0709 07/05/17 0150 Objective Remarks GENERAL: Patient lying in bed. neck brace in place. Appears comfortable. SKIN: Warm and dry. HEAD: Normocephalic. EYES: No scleral icterus. No injection or drainage. NECK: Supple, trachea midline. No JVD. CARDIOVASCULAR: Regular rate and rhythm without murmurs, gallops, or rubs. RESPIRATORY: Breath sounds equal bilaterally. No accessory muscle use. GASTROINTESTINAL: Abdomen soft, non-tender, nondistended. MUSCULOSKELETAL: No cyanosis, or edema. BACK: Nontender without obvious deformity. No CVA tenderness. A/P Assessment and Plan Patient is a 57-year-old female with primary medical history of COPD, bipolar disorder, cervical stenosis who came into the hospital as advised by Dr. Bob for spinal decompression. //Spinal decompression performed on 07/06. - Plan for surgical intervention tomorrow by Dr. Bob - Decadron IV 4 mg every 8 hours per surgery - Pain management by morphine IV, [place] - Patient may need to cardiology for clearance since she was complaining of tightness and shortness of breath with exertion which is not usual for COPD patients and signifying angina. States that she had prior stress tests unable to know the results nor the date of the last stress test done. We will order EKG, myocardial perfusion study. = 07/06. Myocardial perfusion scan low risk. Appreciate cardiology assistance. Patient is cleared for surgery. = 07/07. Postoperative management as per surgical service. No longer nothing by mouth. Discontinue IV fluids. //Postoperative constipation. Laxatives ordered. //COPD, not in exacerbation - Complains of occasional cough, dry, unable to expectorate - Continue DuoNeb's as per pulmonology. Appreciate assistance. Rate ABG reviewed and acceptable. //Bipolar disorder, depression -Continue with home medications Abilify, Lamictal, Wellbutrin //HLD - Continue with atorvastatin //DVT prop SCDs Discharge Planning discharge as per neurosurgery. Jesse Maddox MD Jul 07, 2017 17:43
[2017-07-07] MEDS ORDERED: MAGNESIUM HYDROXIDE SUSP 30 ML CUP PO ONE (17:45)
[2017-07-07] MEDS ORDERED: DOCUSATE SODIUM 50 MG/SENNA 8.6 MG TAB PO ONE (17:45)
[2017-07-07] MEDS: ATORVASTATIN 20 MG TAB PO SCH (20:27)
[2017-07-07] MEDS ORDERED: ARIPiprazole 30 MG TAB PO SCH (21:00)
[2017-07-08 00:15] VITALS: BP 117/75; PULSE 96; RESP 18; TEMP 98.4; O2SAT 95
[2017-07-08] MEDS: HYDROmorphone HCL PF 1 MG/ML VIAL IV PUSH PRN ×2 (00:31→08:03)
[2017-07-08] MEDS: ACETAMINOPHEN/HYDROcodone 325 MG/5 MG TAB PO PRN ×2 (03:35→11:18)
[2017-07-08] MEDS: lamoTRIgine 100 MG TAB PO SCH (08:02)
[2017-07-08] MEDS: DOCUSATE SODIUM 100 MG CAP PO SCH (08:02)
[2017-07-08] MEDS: SODIUM CHLORIDE 0.9% FLUSH 10 ML FLUSH IV FLUSH SCH (08:02)
[2017-07-08] MEDS: buPROPion HCL 150 MG SUSTAINED RELEASE TAB PO SCH (08:02)
[2017-07-08] MEDS ORDERED: HYDR-3516 PO (08:20)
--- NOTE | 2017-07-08 08:23 | PD.ORT.PN ---
Subjective Subjective Remarks Still moderate cervical pain. Feels that her legs are much stronger. She can tell the difference. She is ambulating with minimal assistance Objective Vitals Vital Signs Date Time Temp Pulse Resp B/P (MAP) Pulse Ox O2 Delivery O2 Flow Rate FiO2 07/08/17 00:15 98.4 96 18 117/75 (89) 95 07/07/17 21:43 95 21 07/07/17 20:26 96.9 99 18 147/96 (113) 95 07/07/17 16:00 95.8 90 16 107/80 (89) 95 07/07/17 12:00 97.9 74 16 95/64 (74) 95 I/O 07/07/17 07/07/17 07/07/17 07/08/17 07/08/17 07/08/17 07:00 15:00 23:00 07:00 15:00 23:00 Intake Total 938 ml 700 ml 1449 ml 240 ml Output Total 1345 ml 70 ml Balance -407 ml 700 ml 1379 ml 240 ml Intake Oral 290 ml 600 ml 360 ml 240 ml IV Total 648 ml 100 ml 1089 ml Output Urine Total 1225 ml Drainage Total 120 ml 70 ml # Voids 2 2 4 # Bowel Movements 0 0 0 0 Result Diagram: 07/07/17 0709 07/05/17 0150 Objective Remarks Awake, alert, NAD BUE: 5/5 strength deltoid, biceps, triceps, wrist flex/ext, and finger flex/ ext. Sensation intact. Negative Hoffmans. Rad pulse palpable BLE: 5/5 strength throughout. Sensation mildly decreased similar to prior to surgery. 1-2 beats of clonus remain. DP palpable. Assessment & Plan Ortho Post Op Day #: 2 Problem List: Assessment and Plan 57yo F with cervical stenosis with progressive myelopathy, POD#1 s/p C6-T1 decompression with C3-T2 posterior instrumented fusion, doing well PLAN: Change dressing and pull drain. Discharge on hydrocodone. Full-time brace wear. Teaching family dressing changes. Discharge today. Follow-up with Dr. Bob in 2 weeks. Orthopedically stable Cameron Rust MD Jul 08, 2017 08:23
[2017-07-08 09:30] VITALS: BP 114/82; PULSE 92; RESP 14; TEMP 97.4; O2SAT 94
[2017-07-08 09:32] LABS: AUTOMATED NEUTROPHIL # 6.6 TH/MM3 (1.8-7.7); BASOPHIL % 0.2 % (0.0-2.0); EOSINOPHIL # 0.1 TH/MM3 (0-0.4); EOSINOPHIL % 0.9 % (0.0-4.0); HEMATOCRIT 34.8 % (35.0-46.0); HEMO FLAGS DIFF FINAL; LYMPH % 25.6 % (9.0-44.0); LYMPHOCYTE # 2.8 TH/MM3 (1.0-4.8); MEAN CELL VOLUME 96.9 FL (80.0-100.0); MEAN CORPUSCULAR HEMOGLOBIN 31.7 PG (27.0-34.0); MEAN CORPUSCULAR HGB CONC 32.7 % (32.0-36.0); MONO % 12.3 % (0.0-8.0); PLATELET COUNT 222 TH/MM3 (150-450); RED BLOOD COUNT 3.59 MIL/MM3 (4.00-5.30); RED CELL DISTRIBUTION WIDTH 13.7 % (11.6-17.2); WHITE BLOOD COUNT 10.8 TH/MM3 (4.0-11.0)
[2017-07-08 10:08] LABS: BICARBONATE 28.7 MEQ/L (21.0-32.0); MAGNESIUM 2.2 MG/DL (1.5-2.5); POTASSIUM 3.5 MEQ/L (3.5-5.1)
--- NOTE | 2017-07-08 12:15 | HHI.PR ---
Subjective Remarks alert no sob at rest Objective Vital Signs Date Time Temp Pulse Resp B/P (MAP) Pulse Ox O2 Delivery O2 Flow Rate FiO2 07/08/17 09:30 97.4 92 14 114/82 (93) 94 07/08/17 00:15 98.4 96 18 117/75 (89) 95 07/07/17 21:43 95 21 07/07/17 20:26 96.9 99 18 147/96 (113) 95 07/07/17 16:00 95.8 90 16 107/80 (89) 95 I/O 07/07/17 07/07/17 07/07/17 07/08/17 07/08/17 07/08/17 07:00 15:00 23:00 07:00 15:00 23:00 Intake Total 938 ml 700 ml 1449 ml 240 ml Output Total 1345 ml 70 ml Balance -407 ml 700 ml 1379 ml 240 ml Intake Oral 290 ml 600 ml 360 ml 240 ml IV Total 648 ml 100 ml 1089 ml Output Urine Total 1225 ml Drainage Total 120 ml 70 ml # Voids 2 2 4 # Bowel Movements 0 0 0 0 Result Diagram: 07/08/1746 07/08/17845 Objective Remarks GENERAL: SKIN: Warm and dry. HEAD: Atraumatic. Normocephalic. EYES: Pupils equal and round. No scleral icterus. No injection or drainage. ENT: No nasal bleeding or discharge. Mucous membranes pink and moist. NECK: Trachea midline. No JVD. CARDIOVASCULAR: Regular rate and rhythm. RESPIRATORY: No accessory muscle use. Clear to auscultation. Breath sounds equal bilaterally. GASTROINTESTINAL: Abdomen soft, non-tender, nondistended. Hepatic and splenic margins not palpable. MUSCULOSKELETAL: Extremities without clubbing, cyanosis, or edema. No obvious deformities. NEUROLOGICAL: Awake and alert. No obvious cranial nerve deficits. Motor grossly within normal limits. Five out of 5 muscle strength in the arms and legs. Normal speech. PSYCHIATRIC: Appropriate mood and affect; insight and judgment normal. Assessment and Plan Assessment and Plan copd spinal stenosis POST OP DOING WELL Plan bronchodilator therapy Increase activity Shalonda Liz MD Jul 08, 2017 12:15
--- NOTE | 2017-07-09 09:12 | PD.OP ---
cc: Alejandra Bob MD Operative Report 1. Severe cervical stenosis with progressive myeloradiculopathy 2. 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 Chronic neck pain 4. Instability with spondylolisthesis C7-T1 Postoperative Diagnosis: as above Procedure: 1. Laminectomy with foraminotomies C6 and C7 2. Dome laminectomy T1 3. Posterior cervical segmental instrumentation C3-T2 4. Posterior cervical fusion C3-C4, and C6-T2. Revision fusion C4-C6 Anesthesia: general Surgeon: Alejandra Bob [employer] Coach(s): Esdras Romeo Operation and Findings: Indications for procedure: Patient is a 57 showed female who is seen in my office with concern for myelopathy and was sent for MRIs to be completed. Patient returned with MRIs with progressive myelopathic findings and symptoms, with MRIs demonstrating severe cervical stenosis at C7-T1 with myelomalacia. Options of management were discussed with the patient with surgical management to include posterior cervical decompression with instrumented fusion. We did discuss that she does have chronic neck pain with occasional headaches that could likely be related to her pseudoarthrosis noted at C3-4 from prior ACDF. With this in mind, I did offer the patient a decompression at C6-T1 with her most severe central and foraminal stenosis was a lot of the posterior cervical instrumented fusion from C3-T2 to allow for treatment of her pseudoarthrosis along with managing the instability at C7-T1 noted on imaging. Risks, benefits and alternatives were discussed with the patient and she did elect to proceed with the aforementioned procedure. Description of procedure: Patient was taken back to the operating room. General anesthesia then ensued. Neuro monitoring was then used to allow for pre-flip potentials both sensory and motors to be obtained prior to positioning , for baseline. in [place] head clamp was then placed in standard fashion. Patient was then positioned prone on a Jimenez table with all bony prominences well-padded. Patient's head was positioned in a chin tuck fashion to allow access to the posterior cervical region. Again sensory and motor potentials were then obtained after positioning the head. Shoulders and arms were taped distally to allow better imaging. A midline incision was made from C3 down to T2. standard posterior cervical dissection was made with the use of electrocautery and sharp dissection down to spinous processes and lamina. The lamina were then cleared laterally to the lateral processes of the cervical spine and to the transverse processes of the proximal thoracic spine. Bony landmarks were then identified and with the use of fluoroscopy lateral mass screws were placed bilaterally at C3, C4, C5, C6. These were initially burred, drilled, probed and then tapped prior to each lateral mass screws being inserted. Thoracic pedicle screws were then placed at and T2 bilaterally and at T1 on the right, after burring starting spot, Lenke probe, ball-tip probe, tapping, and again ball-tip probe prior to screw placement. A pedicle screw was attempted on the left T1 pedicle, however this pedicle was very small and sclerotic and would not allow entry of the Lenke probe. After several attempts , it was decided to abort a T1 pedicle screw on the left, and then a left lateral mass screw at C7 was placed with the same technique as previously. Fluoroscopy was used to verify thoracic pedicle screws were within bone and not to medial. At this point, I turned my attention to decompression. An MRI most significant compression was at C7-T1 and foraminal stenosis at C6-7 more significantly on the right. With this in mind, a full laminectomy of C6 and C7 was performed to allow for a thorough foraminotomy and central decompression to be done. A dome laminectomy at T1 was then performed to allow adequate central decompression at the most distal aspect. The spinal cord and nerve roots at C6-7 and C7-T1 at this point appeared to be free of compression. Hemostasis was achieved with the use of bipolar electrocautery and Surgi-Dylan. After thorough decompression, the head was repositioned with the Mast attachment to allow appropriate cervical lordosis and positioning. Again the nerve structures appeared to be free of compression. Rods were then cut, bent and placed into position bilaterally. Locking screws were then placed and final tightened. The cervical spine appeared to be in acceptable alignment on lateral and AP imaging. The neural structures again were free of compression. The wound was copiously irrigated with normal saline. The posterior bony structures were decorticated and demineralized bone matrix allograft was then placed bilaterally. A deep drain was placed, Hemovac medium. Vancomycin powder 1 g was then placed into the wound. The fascia was then closed with interrupted #0 Vicryl sutures. Subcutaneous tissues were closed with interrupted 2-0 Vicryl sutures and the skin closed with a running locking nylon suture. Sterile dressings were then placed. Patient was then transferred off the operating room table in the Mast clamp removed. Patient was then awoken from general anesthesia without complication. It should be noted that the patient remained hemodynamically stable throughout the entire case and there were no adverse neuromonitoring changes noted. Alejandra Bob MD Jul 09, 2017 09:12
== END 2017-07-08 15:35 | disposition home or self-care (01) | DRG 29 ==
LOC: NEPD 19:35 → NEDA 22:55 → N06B 23:45
PROVIDERS: ADMIT Orthopaedic Surgery Orthopaedic Surgery of the Spine; ATTEND Orthopaedic Surgery Orthopaedic Surgery of the Spine
PROC: 00NW0ZZ Release Cervical Spinal Cord, Open Approach (ICD-10-PCS; 2017-07-06)
PROC: 01N10ZZ Release Cervical Nerve, Open Approach (ICD-10-PCS; 2017-07-06)
PROC: 01N80ZZ Release Thoracic Nerve, Open Approach (ICD-10-PCS; 2017-07-06)
PROC: 00NX0ZZ Release Thoracic Spinal Cord, Open Approach (ICD-10-PCS; 2017-07-06)
PROC: 0RG40K1 Fusion of Cervicothoracic Vertebral Joint with Nonautologous Tissue Substitute, Posterior Approach, Posterior Column, Open Approach (ICD-10-PCS; 2017-07-06)
PROC: 0RG40J1 Fusion of Cervicothoracic Vertebral Joint with Synthetic Substitute, Posterior Approach, Posterior Column, Open Approach (ICD-10-PCS; principal; 2017-07-06 17:32)
DX: M54.13 Radiculopathy, cervicothoracic region (principal); G95.89 Other specified diseases of spinal cord; M96.0 Pseudarthrosis after fusion or arthrodesis; M48.02 Spinal stenosis, cervical region; J44.9 Chronic obstructive pulmonary disease, unspecified; F17.210 Nicotine dependence, cigarettes, uncomplicated; F31.9 Bipolar disorder, unspecified; M43.13 Spondylolisthesis, cervicothoracic region; M53.2X3 Spinal instabilities, cervicothoracic region; E78.5 Hyperlipidemia, unspecified; R26.2 Difficulty in walking, not elsewhere classified; Y83.8 Other surgical procedures as the cause of abnormal reaction of the patient, or of later complication, without mention of misadventure at the time of the procedure; K59.00 Constipation, unspecified
CPT/HCPCS: 36600; 71010; 72040; 76000; 78452; 80048; 80069; 82805; 83735; 85014; 85018; 85025; 85610; 85730; 86850; 86900; 86901; 93005; 93017; 94150; A9502; J0131; J0690; J1100; J1170; J1580; J2785; J3370; J3480; L0150; L0172